=== PATIENT | male | born 1950 | race Asian ===

== ENCOUNTER 2022-01-11 08:26 | Emergency (ER) | payer MEDICARE ==
[~2022-01-11] VITALS: Ht 170.2 cm; Wt 77.0 kg
[2022-01-11 08:28] VITALS: BP 126/70
[2022-01-11] MEDS ORDERED: ACETAMINOPHEN 325MG TABLET PO ONE (09:15)
[2022-01-11] MEDS ORDERED: ACET-2708 MT (10:16)
== END 2022-01-11 10:24 | disposition home or self-care (01) ==
LOC: ER 09:04
DX: S09.90XA Unspecified injury of head, initial encounter (principal); S40.012A Contusion of left shoulder, initial encounter; S16.1XXA Strain of muscle, fascia and tendon at neck level, initial encounter; V49.40XA Driver injured in collision with unspecified motor vehicles in traffic accident, initial encounter; Y93.89 Activity, other specified; Y92.89 Other specified places as the place of occurrence of the external cause; Y99.8 Other external cause status
CPT/HCPCS: 73030; 99284